=== PATIENT | female | born 1995 ===

== ENCOUNTER 2024-12-12 11:01 | Outpatient (REF) | payer OTHER, SELFPAY ==
[2024-12-12 15:13] LABS: Abs Immature Grans 0.00 10^3/uL (0.0-0.06); HCT 42.5 % (36.0-46.0); HGB 13.9 g/dL (11.2-15.7); Immature Grans % 0.0 %; MCH 29.4 pg (27.0-33.0); MCHC 32.7 % (32.0-36.0); MCV 90 fL (80-95); MPV 10.2 fL (8.0-11.0); Platelet Count 273 10^3/uL (130-400); RBC 4.73 10^6/uL (3.93-5.22); RDW 12.0 % (11.7-14.6); RDW-SD 39.8 fL; WBC 4.54 10^3/uL (4.4-10.8)
[2024-12-12 15:55] LABS: ALT 34 U/L (14-59); AST 38 U/L (15-37); Albumin 4.1 g/dL (3.4-5.0); Alkaline Phosphatase 67 U/L (46-116); Anion Gap 9.5 mmol/L (3-11); BUN 12 mg/dL (7-18); Bilirubin, Total 0.3 mg/dL (0.2-1.0); CO2 29.5 mmol/L (21.0-32.0); Calcium 9.0 mg/dL (8.5-10.1); Calculated LDL 118 mg/dL (<100); Chloride 102 mmol/L (98-107); Cholesterol 221 mg/dL (<200); Estimated GFR 130.12 (mL/min/1.73m2); Glucose 83 mg/dL (74-106); HDL Cholesterol 90 mg/dL (>or=50); Potassium 4.2 mmol/L (3.5-5.1); Sodium 141 mmol/L (136-145); Total Protein 7.6 g/dL (6.4-8.2); Triglyceride 67 mg/dL (<150); Vitamin D 25 Total 33 ng/mL (30-100)
== END 2024-12-12 11:02 | disposition home or self-care (01) ==
LOC: NCHCN 11:01
PROVIDERS: Visit Provider Nurse Practitioner Family
DX: Z86.39 Personal history of other endocrine, nutritional and metabolic disease (principal); N92.0 Excessive and frequent menstruation with regular cycle; Z00.00 Encounter for general adult medical examination without abnormal findings
CPT/HCPCS: 80053; 80061; 82306; 85025

== ENCOUNTER 2025-02-17 19:16 | Outpatient (REF) | payer OTHER, SELFPAY ==
--- NOTE | 2025-02-17 15:15 | PAPFT_PTH ---
PATIENT: Kylah Limon LOC: [facility] U#:[id number] AGE/SX: 29/F ROOM: RE02/17/[address]: Ruth Squires : 1995 BED: DIS: 02/17/2025 SPEC #: [id number] RECD: 02/18/25 12:53 STATUS: ALFRED REQ #: [id number] GI: 02/17/25 15:[address]: Ruth Squires DEPT: [facility] Cytology RECD BY: Jessica Castro ENTERED: 02/18/25 12:53 SP TYPE: PAPFT OTHR DR: Unknown,Unknown Tissues: 1 - CX/ENDOCX FOR PAP SMEARS Procedures: PAP THIN PREP/[facility] Screening Comments: [id number]
== END 2025-02-17 19:17 | disposition home or self-care (01) ==
LOC: NCHCN 19:16
PROVIDERS: Visit Provider Nurse Practitioner Family
DX: Z12.4 Encounter for screening for malignant neoplasm of cervix (principal)
CPT/HCPCS: 88142